=== PATIENT | female | born 1960 | race Caucasian/White ===

== ENCOUNTER → 2017-02-07 | Outpatient (CLI) | payer OTHER ==
--- NOTE | 2017-02-07 14:50 | DI ---
Indication: ITS.REASON: R07.81 PLEURIDYNIA Procedure: RIBS LEFT: Encounter: Initial Comparison: None Technique: Two views of the left ribs were obtained. Findings: The ribs appear intact with no acute displaced fracture identified. The visualized lungs are clear. No pleural effusion or pneumothorax identified. Impression: No acute displaced rib fracture, pleural effusion, or pneumothorax identified. .
== END ==
LOC: IMA 14:24
PROVIDERS: ATTEND Family Medicine
DX: R07.81 Pleurodynia (principal)